=== PATIENT | female | born 1940 | race Caucasian/White ===

== ENCOUNTER 2017-10-21 22:41 | Emergency (ER) | payer OTHER ==
--- NOTE | 2017-10-21 22:58 | EDPHY ---
H & P Stated Complaint: R sided numbness and tingling Time Seen by Provider: 10/21/17 22:49 HPI/ROS: Chief Complaint: Right-sided numbness, hypertension HPI: 77-year-old woman was lying in bed at 9 o'clock at night when she felt a numbness and tingling in right foot. This decided to her right leg and right arm. She was able to get up walk around did not have any weakness. Symptoms lasted for about 30 min. She called 911. On EMS arrival she was noted to be hypertensive in the 240s over 110's. She does have a history of hypertension but her primary care doctor took her off of the hydrochlorothiazide because it was making her feel sick. She also has a history of hyperlipidemia is on a statin. Currently she feels normal without complaint. No headache. No chest pain. No shortness of breath. ROS: 10 point Review of Systems is negative except as noted in the HPI. PMH: Hypertension, hyperlipidemia Social History: No smoking, no alcohol, no recreational drug use Family History: non-contributory Physical Exam: Gen: Awake, Alert, No Distress HEENT: Nose: no rhinorrhea Eyes: PERRLA, EOMI Mouth: Moist mucosa Neck: Supple, no JVD Chest: nontender, lungs clear to auscultation Heart: S1, S2 normal, no murmur Abd: Soft, non-tender, no guarding Back: no CVA tenderness, no midline tenderness Ext: no edema, non-tender Skin: no rash Neuro: CN II-XII intact, see NIH score - Personal History Current Tetanus/Diphtheria Vaccine: Yes - Medical/Surgical History Hx Asthma: No Hx Chronic Respiratory Disease: No Hx Diabetes: No Hx Cardiac Disease: No Hx Renal Disease: No Hx Cirrhosis: No Hx Alcoholism: No Hx HIV/AIDS: No Hx Splenectomy or Spleen Trauma: No Other PMH: HTN, hyperlipidemia - Social History Smoking Status: Former smoker Constitutional: Initial Vital Signs Temperature (C) 37.5 C 10/21/17 22:49 Heart Rate 87 10/21/17 22:49 Respiratory Rate 18 10/21/17 22:49 Blood Pressure 211/105 H 10/21/17 22:49 O2 Sat (%) 95 10/21/17 22:49 O2 Delivery Mode Room Air Allergies/Adverse Reactions: Sulfa (Sulfonamide Antibiotics) Allergy (Verified 10/21/17 22:53) Home Medications: Medication Instructions Recorded Zocor 10/21/17 Medical Decision Making - Diagnostics EKG Interpretation: ECG time 11:02 p.m., sinus rhythm with a rate of 78, normal axis, normal intervals, no acute ST or T-wave changes. Impression: Normal ECG. Imaging Results: Imaging Impressions Head CT 10/21/17 22:55 Impression: 1. No acute intracranial findings. 2. Diffuse cerebral atrophy with periventricular and subcortical low attenuation consistent with chronic microvascular ischemic gliosis. Findings discussed with Josr Ramos MD 10/22/2017 at 0:02. Imaging: Discussed imaging studies w/ ice cream dipper Radiologist ED Course/Re-evaluation: CT scan of the brain is negative. Blood pressures improved to 174 after labetalol 5 mg. Patient's has insurance is requesting transfer to [facility]. I discussed EC M. Patient will be admitted under Dr. Reyes. I have completed the EMT A LA - Data Points Laboratory Results: Laboratory Results 10/21/17 22:55 10/21/17 22:55 10/21/17 10/21/17 10/21/17 22:55 22:55 22:48 WBC 8.86 10^3/uL 10^3/uL (3.80-9.50) RBC 4.82 10^6/uL 10^6/uL (4.18-5.33) Hgb 14.7 g/dL g/dL (12.6-16.3) Hct 44.1 % % (38.0-47.0) MCV 91.5 fL fL (81.5-99.8) MCH 30.5 pg pg (27.9-34.1) MCHC 33.3 g/dL g/dL (32.4-36.7) RDW 13.7 % % (11.5-15.2) Plt Count 268 10^3/uL 10^3/uL (150-400) MPV 10.4 fL fL (8.7-11.7) Neut % (Auto) 39.1 % L % (39.3-74.2) Lymph % (Auto) 48.0 % H % (15.0-45.0) [place] % (Auto) 8.8 % % (4.5-13.0) Eos % (Auto) 3.3 % % (0.6-7.6) Baso % (Auto) 0.7 % % (0.3-1.7) Nucleat RBC Rel Count 0.0 % % (0.0-0.2) Absolute Neuts (auto) 3.47 10^3/uL 10^3/uL (1.70-6.50) Absolute Lymphs (auto) 4.25 10^3/uL H 10^3/uL (1.00-3.00) Absolute Monos (auto) 0.78 10^3/uL 10^3/uL (0.30-0.80) Absolute Eos (auto) 0.29 10^3/uL 10^3/uL (0.03-0.40) Absolute Basos (auto) 0.06 10^3/uL 10^3/uL (0.02-0.10) Absolute Nucleated RBC 0.00 10^3/uL 10^3/uL (0-0.01) Immature Gran % 0.1 % % (0.0-1.1) Immature Gran # 0.01 10^3/uL 10^3/uL (0.00-0.10) Sodium 135 mEq/L mEq/L (135-145) Potassium 4.1 mEq/L mEq/L (3.3-5.0) Chloride 100 mEq/L mEq/L (97-110) Carbon Dioxide 27 mEq/l mEq/l (22-31) Anion Gap 8 mEq/L mEq/L (8-16) BUN 26 mg/dL H mg/dL (7-23) Creatinine 0.9 mg/dL mg/dL (0.6-1.0) Estimated GFR 60 Glucose 98 mg/dL mg/dL (70-100) Calcium 9.6 mg/dL mg/dL (8.5-10.4) POC Troponin I 0.01 ng/mL ng/mL (0.00-0.08) Medications Given: Discontinued Medications Labetalol HCl (Trandate Injection) 5 mg IVP ONCE ONE Stop: 10/21/17 23:34 Last Admin: 10/21/17 23:38 Dose: 5 mg Point of Care Test Results: Chemistry 10/21/17 22:48 POC Troponin I 0.01 ng/mL ng/mL (0.00-0.08) Departure - Departure Disposition: Acute Care Hospital [facility] Clinical Impression: TIA (transient ischemic attack), Hypertensive urgency Condition: Fair Referrals: Patient,NotPresent [Unknown] - As per Instructions NIH Stroke Scale Date of Exam: 10/21/17 Time of Exam: 22:50 Level of Consciousness: Alert LOC Questions: Answers Both LOC Commands: Performs Both Correctly Best Gaze: Normal Visual: No Visual Loss Facial Palsy: Normal Motor Arm-Left: No Drift Motor Arm-Right: No Drift Motor Leg-Left: No Drift Motor Leg-Right: No Drift Limb Ataxis: Absent Sensory: Normal Best Language: No Aphasia Dysarthria: Normal Extinction and Inattention (Neglect): No Abnormality NIH Scale Score: 0
[2017-10-21 23:04] LABS: PLATELET COUNT 268 10^3/uL (150-400)
[2017-10-21] MEDS ORDERED: LABETALOL HCL 5 MG/ML 20 ML MDV IVP ONE (23:33)
[2017-10-22 02:14] VITALS: BP 178/91
--- NOTE | 2017-10-22 03:53 | CPEKG ---
Test Reason : OPEN Blood Pressure : / mmHG Vent. Rate : 078 BPM Atrial Rate : 077 BPM P-R Int : 149 ms QRS Dur : 097 ms QT Int : 409 ms P-R-T Axes : 056 034 062 degrees QTc Int : 466 ms Sinus rhythm Atrial premature complex Confirmed by Josr Ramos [id number] on 10/22/2017 3:52:59 AM Referred By: Confirmed By:Josr Ramos
== END 2017-10-22 02:13 | disposition short-term general hospital (02) ==
LOC: EDUNIT# → EDBD
DX: G45.9 Transient cerebral ischemic attack, unspecified (principal); I16.0 Hypertensive urgency; E78.5 Hyperlipidemia, unspecified
CPT/HCPCS: 84484-PO; 96374